=== PATIENT | male | born 1970 | race Caucasian/White ===

== ENCOUNTER 2016-12-26 16:34 | Emergency (ER) | payer OTHER ==
[~2016-12-26] VITALS: Ht 175.3 cm; Wt 108.0 kg
[~2016-12-26 16:34] MED LIST: FRN PO; LISI-461 PO; METO-551 PO; NTRGSL/4 UT
[2016-12-26 16:53] VITALS: BP 151/96; PULSE 67; TEMP 36.9; O2SAT 93; Ht 175.3 cm; Wt 108.0 kg
[2016-12-27] MEDS ORDERED: HYDR-5688 PO (00:15)
[2016-12-27] MEDS ORDERED: TAMS0.4C38 PO (00:15)
[2016-12-27] MEDS ORDERED: ONDA4TAB10 SL (00:15)
[2016-12-28] MEDS ORDERED: ASPI81TA21 PO (06:44)
[2016-12-28] MEDS ORDERED: CLOP1TAB54 PO (06:45)
[2016-12-28] MEDS ORDERED: ATOR80TA PO (06:45)
== END 2016-12-26 17:55 | disposition left against medical advice (07) ==
LOC: C.EDB 16:35
DX: N20.0 Calculus of kidney (principal)

== ENCOUNTER 2016-12-26 21:11 | Emergency (ER) | payer OTHER ==
[~2016-12-26] VITALS: Ht 175.3 cm; Wt 124.4 kg
[2016-12-26 21:34] VITALS: TEMP 36.9; Ht 175.3 cm; Wt 124.4 kg
[2016-12-26] MEDS ORDERED: ONDANSETRON INJ 2 MG/ML 2 ML VIAL IV STA (21:51)
[2016-12-26] MEDS ORDERED: MoRPHine SULFATE 4 MG/ML 1 ML CARP\\VIAL IV STA (21:51)
--- NOTE | 2016-12-26 21:55 | EMERGENCY ROOM VISIT NOTE ---
History Report prepared by Pegibjesus alberto: Dinesh Echevarria Under the Supervision of: Dr. Simba Long D.O. First contact with patient: 21:44 Chief Complaint: KIDNEY STONE Stated Complaint: KIDNEY STONE History of Present Illness The patient is a 46 year old male who presents to the Emergency Room with complaints of intermittent right flank pain beginning 12 hours ago. He has a history of kidney stones, but states that his pain is located in a different place. His most recent kidney stone was about a year ago which he was able to pass on his own. The patient also complains of nausea and right testicular pain. He denies any vomiting, or fevers. He rates his current pain as a 10/10 in severity. Source of History: patient Onset: 12 hours ago Position: other (right flank) Symptom Intensity: 10/10 Timing: intermittent Associated Symptoms: + nausea, No fevers, No vomiting Note: The patient complains of right testicular pain. Review of Systems See HPI for pertinent positives and negatives. A total of ten systems were reviewed and were otherwise negative. Past Medical & Surgical Medical Problems: (1) AC MYOCARD INFARCT,OTH LATERAL WALL,INIT EPIS CARE (2) CORONARY ATHEROSCLEROSIS OF [place] AND [place] CORONARY VESSEL (3) HYPERTENSION NOS Family History Patient reports no known family medical history. Social History Smoking Status: Never Smoker Alcohol Use: occasionally Marital Status: Occupation Status: employed Current/Historical Medications Scheduled Allopurinol (Zyloprim), 100 MG PO DAILY Aspirin Enteric Coated (Ecotrin Or Generic), 81 MG PO DAILY Atorvastatin Calcium (Lipitor), 80 MG PO DAILY Clopidogrel Bisulfate (Plavix), 75 MG PO DAILY Losartan Potassium (Cozaar), 50 MG PO HS Metoprolol Succ (Toprol Xl) (Toprol-Xl ), 100 MG PO DAILY Allergies Coded Allergies: Animal Dander (Verified Allergy, Intermediate, runny nose, watery eyes, 11/22/12) Lisinopril (Verified Adverse Reaction, Intermediate, COUGH, 12/26/16) Uncoded Allergies: MUSHROOMS (Allergy, Severe, ANAPHYLAXIS, 12/26/16) Physical Exam Vital Signs Date Time Temp Pulse Resp B/P Pulse Ox O2 Delivery O2 Flow Rate FiO2 12/26/16 23:19 69 12/26/16 22:46 59 14 153/92 96 Room Air 12/26/16 21:34 36.9 74 18 159/97 94 Room Air Medical Decision & Procedures ER Provider Diagnostic Interpretation: CT: Radiology results as stated below per my review and radiologist interpretation CT OF THE ABDOMEN AND PELVIS WITHOUT CONTRAST, STONE PROTOCOL FINDINGS: A 5 mm distal right ureteral calculus results in mild right hydroureteronephrosis with moderate perinephric and periureteral infiltration. No additional urinary calculi are identified. Evaluation of the remainder of the abdomen and pelvis is suboptimal on this unenhanced exam. Unenhanced images of the liver, spleen, adrenal glands and pancreas are normal. There is no evidence for a bowel obstruction. The appendix is normal. There is no lymphadenopathy. There are no suspicious skeletal lesions. IMPRESSION: 5 mm distal right ureteral calculus with resultant mild right hydroureteronephrosis and moderate perinephric/periureteral infiltration. Electronically signed by: Landon Villegas M.D. Laboratory Results 12/26/16 22:05 Red Blood Count 4.52, Mean Corpuscular Volume 86.1, Mean Corpuscular Hemoglobin 30.5, Mean Corpuscular Hemoglobin Concent 35.5, Mean Platelet Volume 10.6, Neutrophils (%) (Auto) 74.6, Lymphocytes (%) (Auto) 16.6, Monocytes (%) (Auto) 6.3, Eosinophils (%) (Auto) 2.0, Basophils (%) (Auto) 0.3, Neutrophils # (Auto) 8.67, Lymphocytes # (Auto) 1.93, Monocytes # (Auto) 0.73, Eosinophils # (Auto) 0.23, Basophils # (Auto) 0.03 12/26/16 22:05 Test 12/26/16 22:05 12/26/16 22:35 White Blood Count 11.61 K/uL (4.8-10.8) Red Blood Count 4.52 M/uL (4.7-6.1) Hemoglobin 13.8 g/dL (14.0-18.0) Hematocrit 38.9 % (42-52) Mean Corpuscular Volume 86.1 fL (80-100) Mean Corpuscular Hemoglobin 30.5 pg (25-34) Mean Corpuscular Hemoglobin Concent 35.5 g/dl (32-36) Platelet Count 211 K/uL (130-400) Mean Platelet Volume 10.6 fL (7.4-10.4) Neutrophils (%) (Auto) 74.6 % Lymphocytes (%) (Auto) 16.6 % Monocytes (%) (Auto) 6.3 % Eosinophils (%) (Auto) 2.0 % Basophils (%) (Auto) 0.3 % Neutrophils # (Auto) 8.67 K/uL (1.4-6.5) Lymphocytes # (Auto) 1.93 K/uL (1.2-3.4) Monocytes # (Auto) 0.73 K/uL (0.11-0.59) Eosinophils # (Auto) 0.23 K/uL (0-0.5) Basophils # (Auto) 0.03 K/uL (0-0.2) RDW Standard Deviation 42.0 fL (36.4-46.3) RDW Coefficient of Variation 13.3 % (11.5-14.5) Immature Granulocyte % (Auto) 0.2 % Immature Granulocyte # (Auto) 0.02 K/uL (0.00-0.02) Anion Gap 9.0 mmol/L (3-11) Est Creatinine Clear Calc Drug Dose 84.2 ml/min Estimated GFR () 68.4 Estimated GFR (Non- 59.0 BUN/Creatinine Ratio 14.1 (10-20) Calcium Level 9.2 mg/dl (8.5-10.1) Urine Color YELLOW Urine Appearance CLEAR (CLEAR) Urine pH 5.0 (4.5-7.5) Urine Specific [place] 1.019 (1.000-1.030) Urine Protein NEG (NEG) Urine Glucose (UA) NEG (NEG) Urine Ketones NEG (NEG) Urine Occult Blood 1+ (NEG) Urine Nitrite NEG (NEG) Urine Bilirubin NEG (NEG) Urine Urobilinogen NEG (NEG) Urine Leukocyte Esterase NEG (NEG) Urine WBC (Auto) 0 /hpf (0-5) Urine RBC (Auto) 5-10 /hpf (0-4) Urine Hyaline Casts (Auto) 1-5 /lpf (0-5) Urine Epithelial Cells (Auto) 5-10 /lpf (0-5) Urine Bacteria (Auto) NEG (NEG) Laboratory results reviewed by me Medications Administered Medications (Trade) Dose Ordered Sig/Kvng Route Start Time Stop Time Status Last Admin Dose Admin Morphine Sulfate (MoRPHine SULFATE INJ) 4 mg NOW STAT IV 12/26/16 21:51 12/26/16 21:53 DC 12/26/16 22:23 4 MG Ondansetron HCl (Zofran Inj) 4 mg NOW STAT IV 12/26/16 21:51 12/26/16 21:53 DC 12/26/16 22:23 4 MG Hydromorphone HCl (Dilaudid Inj) 1 mg NOW STAT IV 12/26/16 23:01 12/26/16 23:02 DC 12/26/16 23:12 1 MG Tamsulosin HCl (Flomax Cap) 0.4 mg NOW ONCE PO 12/26/16 23:15 12/26/16 23:16 DC 12/26/16 23:12 0.4 MG ED Course 2145: The patient was evaluated in room B9. A complete history and physical exam was performed. 2150: Ordered Zofran Inj 4 mg IV, Morphine Sulfate 4 mg IV. 2300: Ordered Dilaudid Inj 1 mg IV. 5: Ordered Flomax Cap 0.4 mg PO. 0006: I reevaluated the patient. He looks more comfortable. Discussed results and discharge instructions: he verbalized understanding and agreement. He was referred to Urology. The patient is ready for discharge. Medical Decision Triage Nursing notes reviewed. The patient's presentation and history were concerning for ureteral lithiasis, renal colic, UTI, pyelonephritis, and musculoskeletal back pain. Reexamination patient 12:10 AM regressing in no distress. Patient has a 5 mm kidney stone in the right UVJ. Patient will be treated with pain medicine. Patient will be referred to urology. The case is discussed with the patient's at bedside all questions were answered. Impression Primary Impression: Ureterolithiasis Scribe Attestation The scribe's documentation has been prepared under my direction and personally reviewed by me in its entirety. I confirm that the note above accurately reflects all work, treatment, procedures, and medical decision making performed by me. Departure Information Dispostion Home / Self-Care Prescriptions Ondasetron Odt (ZOFRAN ODT) 4 Mg Tab 4 MG SL Q6H for Nausea, #10 TAB Prov: Simba Long, DO 12/27/16 Tamsulosin Hcl (FLOMAX) 0.4 Mg Cap 0.4 MG PO DAILY, #10 CAP Prov: Simba Long, DO 12/27/16 Hydrocodone/Acetaminophen 5MG/325MG ([place] 5MG/325MG) Tab 1 TABLET PO Q6 Y for Pain for 10 Days, #20 TAB Prov: Simba Long, DO 12/27/16 Referrals No Doctor, Assigned (PCP) eWrner Jessica MD, Urology Patient Instructions Kidney Stones, My [facility] Additional Instructions Follow-up with urology this week. Continue to increase fluids. Take pain medicine and other medications as directed and return for increased pain or any concerns
[2016-12-26 22:20] LABS: BASO % 0.3 %; BASO ABS # 0.03 K/uL (0-0.2); COMPLETE YES; HEMATOCRIT 38.9 % (42-52); IG% 0.2 %; LYMPH % 16.6 %; LYMPH ABS # 1.93 K/uL (1.2-3.4); MEAN CELL VOLUME 86.1 fL (80-100); MEAN CORPUSCULAR HEMOGLOBIN 30.5 pg (25-34); MEAN CORPUSCULAR HGB CONC 35.5 g/dl (32-36); MEAN PLATELET VOLUME 10.6 fL (7.4-10.4); MONO % 6.3 %; NEUT % 74.6 %; PLATELET COUNT 211 K/uL (130-400); RED BLOOD COUNT 4.52 M/uL (4.7-6.1); WHITE BLOOD COUNT 11.61 K/uL (4.8-10.8)
[2016-12-26 22:38] LABS: BUN/CREATININE RATIO 14.1 (10-20); CALCIUM 9.2 mg/dl (8.5-10.1); CREATININE 1.4 mg/dl (0.60-1.40); POTASSIUM 3.7 mmol/L (3.5-5.1)
[2016-12-26 22:49] LABS: URINE APPEARANCE CLEAR (CLEAR); URINE BILIRUBIN NEG (NEG); URINE COLOR YELLOW; URINE NITRITE NEG (NEG); URINE SPECIFIC GRAVITY 1.019 (1.000-1.030); UROBILINOGEN NEG (NEG)
--- NOTE | 2016-12-26 22:50 | DIAGNOSTIC IMAGING REPORT ---
CT OF THE ABDOMEN AND PELVIS WITHOUT CONTRAST, STONE PROTOCOL CLINICAL HISTORY: Flank pain. COMPARISON STUDY: CT of the abdomen and pelvis December 02, 2012. TECHNIQUE: Helical axial images of the abdomen and pelvis were obtained without IV or oral contrast according to renal stone protocol. FINDINGS: A 5 mm distal right ureteral calculus results in mild right hydroureteronephrosis with moderate perinephric and periureteral infiltration. No additional urinary calculi are identified. Evaluation of the remainder of the abdomen and pelvis is suboptimal on this unenhanced exam. Unenhanced images of the liver, spleen, adrenal glands and pancreas are normal. There is no evidence for a bowel obstruction. The appendix is normal. There is no lymphadenopathy. There are no suspicious skeletal lesions. IMPRESSION: 5 mm distal right ureteral calculus with resultant mild right hydroureteronephrosis and moderate perinephric/periureteral infiltration. Electronically signed by: Landon Villegas M.D. 12/26/2016 10:48 PM Dictated Date/Time: 12/26/2016 10:45 PM
[2016-12-26 22:51] LABS: MANUAL MICROSCOPIC REQUIRED? NO; REVIEW REQ? NO
[2016-12-26] MEDS ORDERED: HYDROmorphone INJ 1 MG/ML SYR IV STA (23:01)
[2016-12-26] MEDS ORDERED: TAMSULOSIN HCL 0.4 MG CAP PO ONE (23:15)
[2016-12-27] MEDS ORDERED: TAMS0.4C38 PO (00:15)
[2016-12-27] MEDS ORDERED: ONDA4TAB10 SL (00:15)
[2016-12-27] MEDS ORDERED: HYDR-5688 PO (00:15)
[2016-12-27] MEDS ORDERED: NORCO 5/325MG HOME PACK PO ONE (00:30)
[2016-12-27 00:55] VITALS: BP 142/80; PULSE 78; O2SAT 94
[2016-12-28] MEDS ORDERED: ASPI81TA21 PO (06:44)
[2016-12-28] MEDS ORDERED: CLOP1TAB54 PO (06:45)
[2016-12-28] MEDS ORDERED: ATOR80TA PO (06:45)
[2016-12-28] MEDS ORDERED: ALLO100T PO (22:21)
[2016-12-28] MEDS ORDERED: METO1TAB69 PO (22:21)
[2016-12-28] MEDS ORDERED: LOSA50TA6 PO (22:22)
== END 2016-12-27 00:55 | disposition home or self-care (01) ==
LOC: C.EDB 21:12
DX: N20.2 Calculus of kidney with calculus of ureter (principal); I10 Essential (primary) hypertension; I25.10 Atherosclerotic heart disease of native coronary artery without angina pectoris; I25.2 Old myocardial infarction; Z79.82 Long term (current) use of aspirin; Z79.899 Other long term (current) drug therapy; Z88.8 Allergy status to other drugs, medicaments and biological substances; Z91.09 Other allergy status, other than to drugs and biological substances

== ENCOUNTER 2016-12-28 17:19 | Inpatient (IN) | payer SELFPAY ==
[~2016-12-28] VITALS: Ht 175.3 cm; Wt 124.2 kg
[~2016-12-28 17:19] MED LIST changes: +ASPI81TA21 PO; +ATOR80TA PO; +CLOP1TAB54 PO; -FRN PO; +HYDR-5688 PO; -LISI-461 PO; -METO-551 PO; -NTRGSL/4 UT; +ONDA4TAB10 SL; +TAMS0.4C38 PO
[2016-12-28] MEDS ORDERED: MoRPHine SULFATE 4 MG/ML 1 ML CARP\\VIAL IV STA (17:42)
[2016-12-28] MEDS ORDERED: ONDANSETRON INJ 2 MG/ML 2 ML VIAL IV STA (17:42)
[2016-12-28] MEDS ORDERED: SODIUM CHLORIDE 0.9% 1000ML 1,000 ML IV STA (17:42)
[2016-12-28 18:20] LABS: BASO % 0.2 %; BASO ABS # 0.02 K/uL (0-0.2); COMPLETE YES; EOS % 1.5 %; HEMATOCRIT 37.7 % (42-52); IG% 0.2 %; LYMPH % 13.8 %; LYMPH ABS # 1.73 K/uL (1.2-3.4); MEAN CELL VOLUME 87.5 fL (80-100); MEAN CORPUSCULAR HEMOGLOBIN 29.9 pg (25-34); MEAN CORPUSCULAR HGB CONC 34.2 g/dl (32-36); MEAN PLATELET VOLUME 10.4 fL (7.4-10.4); MONO % 9.7 %; NEUT % 74.6 %; PLATELET COUNT 187 K/uL (130-400); RED BLOOD COUNT 4.31 M/uL (4.7-6.1)
[2016-12-28] MEDS ORDERED: SODIUM CHLORIDE 0.9% 500ML 500 ML IV STA (18:46)
[2016-12-28] MEDS ORDERED: HYDROmorphone INJ 1 MG/ML SYR IV STA (18:46)
[2016-12-28 19:07] LABS: ALB/GLOB RATIO 0.9 (0.9-2); POTASSIUM 4.3 mmol/L (3.5-5.1)
[2016-12-28 19:10] LABS: URINE APPEARANCE CLEAR (CLEAR); URINE BILIRUBIN NEG (NEG); URINE COLOR YELLOW; URINE NITRITE NEG (NEG); UROBILINOGEN NEG (NEG); ZZUR CULT IF INDIC CLEAN CATCH NO
[2016-12-28 19:11] LABS: MANUAL MICROSCOPIC REQUIRED? NO; REVIEW REQ? NO
--- NOTE | 2016-12-28 19:46 | DIAGNOSTIC IMAGING REPORT ---
RENAL ULTRASOUND CLINICAL HISTORY: Right flank pain. COMPARISON STUDY: CT of the abdomen and pelvis December 26, 2016. TECHNIQUE: Sonography of the kidneys and the urinary bladder was performed. FINDINGS: The right kidney measures 10.8 x 6.4 x 6.4 cm and the left measures 11.6 x 6.6 x 6.6 cm. There is mild right hydronephrosis. There is no left hydronephrosis. The left ureteral jet was visualized. The right ureteral jet was not visualized. No ureteral calculi identified although these may be occult by sonography. IMPRESSION: Mild right hydronephrosis, similar to prior CT when allowing for differences in technique. No right ureteral jet identified. No ureteral calculi identified although these are often occult by sonography. Electronically signed by: Landon Villegas M.D. 12/28/2016 7:45 PM Dictated Date/Time: 12/28/2016 7:43 PM
--- NOTE | 2016-12-28 19:56 | DIAGNOSTIC IMAGING REPORT ---
KUB CLINICAL HISTORY: Right flank pain. COMPARISON STUDY: CT of the abdomen and pelvis December 26, 2016. FINDINGS: A 4 mm right pelvic calcification likely reflects the distal right ureteral calculus shown on prior CT. Additional pelvic calcifications likely reflect phlebolith and vascular calcifications. IMPRESSION: 4 mm right pelvic calcification which likely reflects the distal right ureteral calculus shown on prior CT. A phlebolith could appear similar although is considered less likely. Electronically signed by: Landon Villegas M.D. 12/28/2016 7:55 PM Dictated Date/Time: 12/28/2016 7:52 PM
--- NOTE | 2016-12-28 20:15 | EMERGENCY ROOM VISIT NOTE ---
History First contact with patient: 17:35 Chief Complaint: KIDNEY STONE Stated Complaint: KIDNEY STONES, RIGHT SIDE History of Present Illness The patient is a 46 year old male who presents to the Emergency Department by private vehicle for evaluation of his ongoing pain related to an RIGHT-sided kidney stone. The patient was seen in this facility on Monday and diagnosed with a RIGHT-sided kidney stone. He had been feeling well yesterday, but reports worsening symptoms today. He has had chills as well as nausea and vomiting. He describes intense pain to the RIGHT-sided flank area which waxes and wanes in nature. He's had no burning with urination or blood in his urine. He is uses pain medications with minimal relief of symptoms. The patient rates his current discomfort as a 10/10. He denies any headaches, dizziness, lightheadedness, chest pain, palpitations, short of breath, pleuritic pain, hematemesis, hematochezia, melena, hematuria, or dysuria. Review of Systems A complete 10-point Review of Systems was discussed with the patient, with pertinent positives and negatives listed in the History of Present Illness. All remaining Review of Systems questions can be considered negative unless otherwise specified. Past Medical/Surgical History Medical Problems: (1) CAD (coronary artery disease) (2) Dyslipidemia (3) Gout (4) History of kidney stones (5) HTN (hypertension) Surgical Problems: (1) Stented coronary artery Family History Patient reports no known family medical history. Social History Smoking Status: Never Smoker Smokeless Tobacco Use: No Alcohol Use: occasionally Drug Use: none Marital Status: Housing Status: lives with family Occupation Status: employed Current/Historical Medications Scheduled Allopurinol (Zyloprim), 100 MG PO DAILY Aspirin Enteric Coated (Ecotrin Or Generic), 81 MG PO DAILY Atorvastatin Calcium (Lipitor), 80 MG PO DAILY Clopidogrel Bisulfate (Plavix), 75 MG PO DAILY Losartan Potassium (Cozaar), 50 MG PO HS Metoprolol Succ (Toprol Xl) (Toprol-Xl ), 100 MG PO DAILY Ondasetron Odt (Zofran Odt), 4 MG SL Q6H Tamsulosin Hcl (Flomax), 0.4 MG PO DAILY Scheduled PRN Hydrocodone/Acetaminophen 5MG/325MG ([place] 5MG/325MG), 1 TABLET PO Q6 PRN for Pain Allergies Coded Allergies: Animal Dander (Verified Allergy, Intermediate, runny nose, watery eyes, 11/22/12) Lisinopril (Verified Adverse Reaction, Intermediate, COUGH, 12/26/16) Uncoded Allergies: MUSHROOMS (Allergy, Severe, ANAPHYLAXIS, 12/26/16) Physical Exam Vital Signs Date Time Temp Pulse Resp B/P Pulse Ox O2 Delivery O2 Flow Rate FiO2 12/28/16 20:14 37.5 75 16 141/80 95 Room Air 12/28/16 18:49 69 18 163/96 99 Room Air 12/28/16 17:22 37.0 74 18 138/91 95 Room Air Pain Rating (0-10): 10 Physical Exam VITAL SIGNS - Vital signs and nursing notes were reviewed. GENERAL - 46-year-old male appearing his stated age who is in no acute distress. Communicates well with provider and answers questions appropriately. LUNGS - Chest wall symmetric without accessory muscle use, intercostals retractions, or central cyanosis. Normal vesicular breath sounds CTA B/L. No wheezes, rales, or rhonchi appreciated. CARDIAC - RRR with S1/S2. No murmur, rubs, or gallops appreciated. ABDOMEN - Abdominal contour obese and without pulsations or visible masses. BS normoactive all four quadrants. No tenderness to palpation appreciated throughout. No guarding. No Rebound Tenderness. Negative Rovsing's. Negative Ortiz's. No palpable masses, hepatosplenomegaly, or ascites noted. RIGHT sided CVA Tenderness to percussion. PSYCH - A&Ox3 and cooperates fully with examiner. Pt is very pleasant and interacts well with examiner. Medical Decision & Procedures ER Provider Diagnostic Interpretation: Radiological imaging and reports were reviewed by myself. Radiologist's Interpretation as follows: KUB CLINICAL HISTORY: Right flank pain. COMPARISON STUDY: CT of the abdomen and pelvis December 26, 2016. FINDINGS: A 4 mm right pelvic calcification likely reflects the distal right ureteral calculus shown on prior CT. Additional pelvic calcifications likely reflect phlebolith and vascular calcifications. IMPRESSION: 4 mm right pelvic calcification which likely reflects the distal right ureteral calculus shown on prior CT. A phlebolith could appear similar although is considered less likely. RENAL ULTRASOUND CLINICAL HISTORY: Right flank pain. COMPARISON STUDY: CT of the abdomen and pelvis December 26, 2016. TECHNIQUE: Sonography of the kidneys and the urinary bladder was performed. FINDINGS: The right kidney measures 10.8 x 6.4 x 6.4 cm and the left measures 11.6 x 6.6 x 6.6 cm. There is mild right hydronephrosis. There is no left hydronephrosis. The left ureteral jet was visualized. The right ureteral jet was not visualized. No ureteral calculi identified although these may be occult by sonography. IMPRESSION: Mild right hydronephrosis, similar to prior CT when allowing for differences in technique. No right ureteral jet identified. No ureteral calculi identified although these are often occult by sonography. Laboratory Results 12/28/16 18:00 Red Blood Count 4.31, Mean Corpuscular Volume 87.5, Mean Corpuscular Hemoglobin 29.9, Mean Corpuscular Hemoglobin Concent 34.2, Mean Platelet Volume 10.4, Neutrophils (%) (Auto) 74.6, Lymphocytes (%) (Auto) 13.8, Monocytes (%) (Auto) 9.7, Eosinophils (%) (Auto) 1.5, Basophils (%) (Auto) 0.2, Neutrophils # (Auto) 9.33, Lymphocytes # (Auto) 1.73, Monocytes # (Auto) 1.21, Eosinophils # (Auto) 0.19, Basophils # (Auto) 0.02 12/28/16 18:00 Test 12/28/16 18:00 12/28/16 18:50 White Blood Count 12.50 K/uL (4.8-10.8) Red Blood Count 4.31 M/uL (4.7-6.1) Hemoglobin 12.9 g/dL (14.0-18.0) Hematocrit 37.7 % (42-52) Mean Corpuscular Volume 87.5 fL (80-100) Mean Corpuscular Hemoglobin 29.9 pg (25-34) Mean Corpuscular Hemoglobin Concent 34.2 g/dl (32-36) Platelet Count 187 K/uL (130-400) Mean Platelet Volume 10.4 fL (7.4-10.4) Neutrophils (%) (Auto) 74.6 % Lymphocytes (%) (Auto) 13.8 % Monocytes (%) (Auto) 9.7 % Eosinophils (%) (Auto) 1.5 % Basophils (%) (Auto) 0.2 % Neutrophils # (Auto) 9.33 K/uL (1.4-6.5) Lymphocytes # (Auto) 1.73 K/uL (1.2-3.4) Monocytes # (Auto) 1.21 K/uL (0.11-0.59) Eosinophils # (Auto) 0.19 K/uL (0-0.5) Basophils # (Auto) 0.02 K/uL (0-0.2) RDW Standard Deviation 43.3 fL (36.4-46.3) RDW Coefficient of Variation 13.4 % (11.5-14.5) Immature Granulocyte % (Auto) 0.2 % Immature Granulocyte # (Auto) 0.02 K/uL (0.00-0.02) Anion Gap 6.0 mmol/L (3-11) Est Creatinine Clear Calc Drug Dose 58.9 ml/min Estimated GFR () 44.4 Estimated GFR (Non- 38.3 BUN/Creatinine Ratio 11.0 (10-20) Calcium Level 9.0 mg/dl (8.5-10.1) Total Bilirubin 0.5 mg/dl (0.2-1) Aspartate Amino Transf (AST/SGOT) 13 U/L (15-37) Alanine Aminotransferase (ALT/SGPT) 30 U/L (12-78) Alkaline Phosphatase 72 U/L (45-117) Total Protein 7.2 gm/dl (6.4-8.2) Albumin 3.5 gm/dl (3.4-5.0) Globulin 3.7 gm/dl (2.5-4.0) Albumin/Globulin Ratio 0.9 (0.9-2) Urine Color YELLOW Urine Appearance CLEAR (CLEAR) Urine pH 5.0 (4.5-7.5) Urine Specific [place] 1.010 (1.000-1.030) Urine Protein NEG (NEG) Urine Glucose (UA) NEG (NEG) Urine Ketones NEG (NEG) Urine Occult Blood NEG (NEG) Urine Nitrite NEG (NEG) Urine Bilirubin NEG (NEG) Urine Urobilinogen NEG (NEG) Urine Leukocyte Esterase NEG (NEG) Medications Administered Medications (Trade) Dose Ordered Sig/Kvng Route Start Time Stop Time Status Last Admin Dose Admin Sodium Chloride (Nss 1000ml) 1,000 ml @ 999 mls/hr Q1H1M STAT IV 12/28/16 17:42 12/28/16 18:42 DC 12/28/16 17:59 999 MLS/HR Ondansetron HCl (Zofran Inj) 4 mg NOW STAT IV 12/28/16 17:42 12/28/16 17:44 DC 12/28/16 17:59 4 MG Morphine Sulfate (MoRPHine SULFATE INJ) 4 mg NOW STAT IV 12/28/16 17:42 12/28/16 17:44 DC 12/28/16 18:00 4 MG Hydromorphone HCl 1 mg 1 mg NOW STAT IV 12/28/16 18:46 12/28/16 18:47 DC 12/28/16 18:52 1 MG Sodium Chloride (Nss 500ml) 500 ml @ 999 mls/hr Q31M STAT IV 12/28/16 18:46 12/28/16 19:16 DC 12/28/16 18:53 999 MLS/HR ED Course Patient was seen and evaluated by myself. Previous emergency department visit notes were reviewed. Labs were drawn, saline lock in place. The patient was hydrated with 1000 mL normal saline bolus. He received 4 mg morphine and 4 mg Zofran intravenously. KUB and retroperitoneal ultrasounds were obtained. Laboratory results demonstrate a mild leukocytosis. He has no significant anemia. His creatinine was elevated at 2.0. Urinalysis does not suggest infection. Patient was having worsening pain and was treated with 1 mg Dilaudid. Laboratory results and imaging studies were reviewed with the patient who acknowledges understanding. Patient was offered outpatient management with continued pain control versus inpatient. The patient's pain was intense and he does not feel he can go home again on oral medication alone. I agree. The patient will be admitted to the [facility] program for further evaluation and management. Patient admitted in stable condition. Medical Decision Given the patient's presentation and stated complaints, I did elect to perform the above-mentioned workup. The patient presents today with intensity of pain that has worsened to the RIGHT-sided flank area. He has no fever. He does have a mild leukocytosis. Of interest, his creatinine is bumped from 1.42 days ago to 2.0 today. He does have hydronephrosis and persistent stone. Urinalysis does not suggest infection. The patient's pain was adequately controlled the emergency department. At this point, the patient has failed outpatient with pain control and is had worsening symptoms. He warrants further evaluation and pain control and inpatient setting. Patient was admitted in stable condition. In the evaluation and treatment of this patient, the following differential diagnoses were considered: Appendicitis, Diverticulitis, Diverticulosis, Colitis , Ischemic Colitis, Inflammatory Bowel Disease, Irritable Bowel Disease, Testicular Torsion, Kidney Stone, Pyelonephritis, Hydronephrosis, Cholecystitis , Ascending Cholangitis, Choledocholithiasis, GERD. Impression Primary Impression: Ureterolithiasis Additional Impressions: Hydronephrosis determined by ultrasound ALAINA (acute kidney injury) Departure Information Dispostion Admitted as an inpatient Condition GOOD Referrals Simba Marcial D.O. (PCP) Patient Instructions My [facility] Problem Qualifiers
[2016-12-28] MEDS ORDERED: ONDANSETRON INJ 2 MG/ML 2 ML VIAL IV PRN (21:00)
[2016-12-28] MEDS ORDERED: POLYETHYLENE (MIRALAX) 17 GM PACK PO PRN (21:00)
--- NOTE | 2016-12-28 21:22 | History and Physical ---
History & Physical Date & Time of Service: Dec 28, 2016 at 20:59 Chief Complaint: Kidney Stones, Right Side Primary Care Physician: Simba Marcial D.O. History of Present Illness Source: patient This is a 46 y/o male with PMHx of CAD s/p stents, HTN, Dyslipidemia and other problems as outlined below who presents to the ED c/o R flank pain that began 2 days ago. Pt reports that 2 days ago he developed 10/10 waxing and waning R flank pain that radiated to into the R groin. Sxs were assoc with hematuria. Pt was seen in the ED 2 days and diagnosed with a R sided kidney stone. He was discharged home with Flomax and hydrocodone PRN. Yesterday, his hematuria and flank pain improved and he thought he had passed the stone however today his R flank pain returned. He tried taking the hydrocodone however it offered him no relief and decided to return to the ED. Pt has a history of kidney stones. He has never required surgery. Pt denies fever/chills, chest pain, SOB, abd pain, N /V, bowel issues, dysuria, LE edema, calf pain, lightheadedness/dizziness. In the ED, vitals are stable. Pt is afebrile with leukocytosis >12k. Creat 2.0. UA negative. KUB + 4mm R ureteral calculi with mild R hydronephrosis. Pt will be admitted for further evaluation and treatment. Past Medical/Surgical History Medical Problems: (1) CAD (coronary artery disease) Permanent Comment: s/p stents x 3 Status: Chronic (2) Dyslipidemia Status: Chronic (3) Gout Status: Chronic (4) History of kidney stones Status: Chronic (5) HTN (hypertension) Status: Chronic Surgical Problems: (1) Stented coronary artery Permanent Comment: 2011 (stents x 2) and 2014 (stent x 1) Status: Resolved Family History Patient reports no known family medical history. Social History Smoking Status: Never Smoker Smokeless Tobacco Use: No Alcohol Use: none Drug Use: none Marital Status: Housing status: lives with family Occupational Status: employed Immunizations History of Influenza Vaccine: No History of Tetanus Vaccine?: Unknown History of Pneumococcal: No History of Hepatitis B Vaccine: No Allergies Coded Allergies: Animal Dander (Verified Allergy, Intermediate, runny nose, watery eyes, 11/22/12) Lisinopril (Verified Adverse Reaction, Intermediate, COUGH, 12/26/16) Uncoded Allergies: MUSHROOMS (Allergy, Severe, ANAPHYLAXIS, 12/26/16) Home Medications Scheduled Allopurinol (Zyloprim), 100 MG PO DAILY Aspirin Enteric Coated (Ecotrin Or Generic), 81 MG PO DAILY Atorvastatin Calcium (Lipitor), 80 MG PO DAILY Clopidogrel Bisulfate (Plavix), 75 MG PO DAILY Losartan Potassium (Cozaar), 50 MG PO HS Metoprolol Succ (Toprol Xl) (Toprol-Xl ), 100 MG PO DAILY Ondasetron Odt (Zofran Odt), 4 MG SL Q6H Tamsulosin Hcl (Flomax), 0.4 MG PO DAILY Scheduled PRN Hydrocodone/Acetaminophen 5MG/325MG ([place] 5MG/325MG), 1 TABLET PO Q6 PRN for Pain Review of Systems Constitutional: No chills, No fatigue, No fever, No sweats, No weakness Eyes: No worsening of vision ENT: No hearing loss Respiratory: No cough, No shortness of breath Cardiovascular: No chest pain, No claudication, No edema Abdomen: + problem reported (flank pain ), No constipation, No diarrhea, No nausea, No pain, No vomiting Musculoskeletal: No calf pain, No swelling Genitourinary - Male: + hematuria (resolved), No dysuria Neurologic: No weakness Psychiatric: No depression symptoms Endocrine: No fatigue Hematologic / Lymphatic: No abnormal bleeding/bruising Integumentary: No new/changing skin lesions Physical Exam Vital Signs Date Time Temp Pulse Resp B/P Pulse Ox O2 Delivery O2 Flow Rate FiO2 12/28/16 20:14 37.5 75 16 141/80 95 Room Air 12/28/16 18:49 69 18 163/96 99 Room Air 12/28/16 17:22 37.0 74 18 138/91 95 Room Air General Appearance: WD/WN, no apparent distress, + pertinent finding (Pt is laying in bed with at bedside ) Head: normocephalic, atraumatic Eyes: normal inspection ENT: hearing grossly normal Neck: supple Respiratory/Chest: chest non-tender, lungs clear, normal breath sounds, no respiratory distress Cardiovascular: regular rate, rhythm, no edema, no murmur Abdomen/GI: normal bowel sounds, non tender, soft Back: normal inspection, + right CVA tenderness Extremities/Musculoskelatal: normal inspection, no calf tenderness, no pedal edema Neurologic/Psych: alert, normal mood/affect, oriented x 3 Skin: normal color, warm/dry Diagnostics Laboratory Results Results Past 24 Hours Test 12/28/16 18:00 12/28/16 18:50 Range/Units White Blood Count 12.50 4.8-10.8 K/uL Red Blood Count 4.31 4.7-6.1 M/uL Hemoglobin 12.9 14.0-18.0 g/dL Hematocrit 37.7 42-52 % Mean Corpuscular Volume 87.5 80-100 fL Mean Corpuscular Hemoglobin 29.9 25-34 pg Mean Corpuscular Hemoglobin Concent 34.2 32-36 g/dl Platelet Count 187 130-400 K/uL Mean Platelet Volume 10.4 7.4-10.4 fL Neutrophils (%) (Auto) 74.6 % Lymphocytes (%) (Auto) 13.8 % Monocytes (%) (Auto) 9.7 % Eosinophils (%) (Auto) 1.5 % Basophils (%) (Auto) 0.2 % Neutrophils # (Auto) 9.33 1.4-6.5 K/uL Lymphocytes # (Auto) 1.73 1.2-3.4 K/uL Monocytes # (Auto) 1.21 0.11-0.59 K/uL Eosinophils # (Auto) 0.19 0-0.5 K/uL Basophils # (Auto) 0.02 0-0.2 K/uL RDW Standard Deviation 43.3 36.4-46.3 fL RDW Coefficient of Variation 13.4 11.5-14.5 % Immature Granulocyte % (Auto) 0.2 % Immature Granulocyte # (Auto) 0.02 0.00-0.02 K/uL Sodium Level 138 136-145 mmol/L Potassium Level 4.3 3.5-5.1 mmol/L Chloride Level 102 98-107 mmol/L Carbon Dioxide Level 30 21-32 mmol/L Anion Gap 6.0 3-11 mmol/L Blood Urea Nitrogen 22 7-18 mg/dl Creatinine 2.00 0.60-1.40 mg/dl Est Creatinine Clear Calc Drug Dose 58.9 ml/min Estimated GFR () 44.4 Estimated GFR (Non- 38.3 BUN/Creatinine Ratio 11.0 10-20 Random Glucose 93 70-99 mg/dl Calcium Level 9.0 8.5-10.1 mg/dl Total Bilirubin 0.5 0.2-1 mg/dl Aspartate Amino Transf (AST/SGOT) 13 15-37 U/L Alanine Aminotransferase (ALT/SGPT) 30 12-78 U/L Alkaline Phosphatase 72 45-117 U/L Total Protein 7.2 6.4-8.2 gm/dl Albumin 3.5 3.4-5.0 gm/dl Globulin 3.7 2.5-4.0 gm/dl Albumin/Globulin Ratio 0.9 0.9-2 Urine Color YELLOW Urine Appearance CLEAR CLEAR Urine pH 5.0 4.5-7.5 Urine Specific [place] 1.010 1.000-1.030 Urine Protein NEG NEG Urine Glucose (UA) NEG NEG Urine Ketones NEG NEG Urine Occult Blood NEG NEG Urine Nitrite NEG NEG Urine Bilirubin NEG NEG Urine Urobilinogen NEG NEG Urine Leukocyte Esterase NEG NEG Diagnostic Radiology KUB IMPRESSION: 4 mm right pelvic calcification which likely reflects the distal right ureteral calculus shown on prior CT. A phlebolith could appear similar although is considered less likely. R RENAL US IMPRESSION: Mild right hydronephrosis, similar to prior CT when allowing for differences in technique. No right ureteral jet identified. No ureteral calculi identified although these are often occult by sonography. Impression Assessment and Plan R RENAL CALCULI WITH MILD HYDRONEPHROSIS pt presented with R flank pain and hematuria 2 days ago; h/o multiple kidney stones -admit to med/surg -pt is afebrile with no leukocytosis -KUB + 4mm R ureteral calculi and R Renal US + mild hydronephrosis -UA negative -cont IVF, Flomax and pain control -strain urine -hold off on urology consult for now -monitor ALAINA -creatinine 2.0; was 1.4 (12/26); secondary to obstructing ureteral calculi (see above) -hold losartan -cont IVF -monitor with daily prp and avoid nephrotoxic agents when able CAD -s/p stent placement -cont ASA, Plavix, BB and statin -pt currently denies anginal sxs HTN -BP stable -cont metoprolol -losartan on hold for ALAINA -monitor DYSLIPIDEMIA -cont statin DVT PROPHYLAXIS -SCDs and ambulation CODE STATUS -FULL CODE status DISPO Pt seen in collaboration with Dr. Henderson. Please see her addendum for further details. Thanks! -Of note: patient will be followed by Dr. Valiente starting tomorrow AM. I have seen, examined and discussed this patient with Rosario Geronimo and I agree with the above note. Patient presented with right flank pain, with right renal stone. Vitals stable. PE: General- awake; alert; NAD Eyes- EOMI; no scleral icterus Neck- no stridor; trachea midline Lungs- CTA bilaterally; no wheezes/crackles Heart- RRR; no m/r/g Abdomen- soft; NTND; nBS Back- right CVA tenderness Extremities- no c/c/e; no deformity Neuro- no focal deficits Skin- no appreciable rash or bruise Labs, imaging reviewed. Right renal stone: Continue IVF's, pain medication PRN. Continue Flomax. Strain urine. If symptoms persist, consider Urology consult. ALAINA: Likely 2/2 stone. Ultrasound with mild right hydronephrosis. Continue IVF' s. Hold losartan. Agree with remainder of plan as outlined above. VTE Prophylaxis VTE Risk Assessment Done? Y/N: Yes Risk Level: Low
[2016-12-28] MEDS: HYDROmorphone INJ 1 MG/ML SYR IV PRN (21:55)
[2016-12-28 22:00] VITALS: O2SAT 95
[2016-12-28] MEDS: SODIUM CHLORIDE 0.9% 1000ML 1,000 ML IV SCH (22:12)
[2016-12-28 22:20] VITALS: BP 121/78; PULSE 78; TEMP 37.3; O2SAT 91; Ht 175.3 cm; Wt 124.2 kg
[2016-12-28] MEDS ORDERED: ALLO100T PO (22:21)
[2016-12-28] MEDS ORDERED: METO1TAB69 PO (22:21)
[2016-12-28] MEDS ORDERED: LOSA50TA6 PO (22:22)
[2016-12-28 23:15] VITALS: BP 139/75; PULSE 83; TEMP 37.4; O2SAT 92
[2016-12-29] MEDS: HYDROmorphone INJ 1 MG/ML SYR IV PRN (03:06)
[2016-12-29] MEDS: SODIUM CHLORIDE 0.9% 1000ML 1,000 ML IV SCH (04:43)
[2016-12-29 06:43] LABS: HEMATOCRIT 35.8 % (42-52); MEAN CELL VOLUME 88.6 fL (80-100); MEAN CORPUSCULAR HEMOGLOBIN 30.2 pg (25-34); MEAN CORPUSCULAR HGB CONC 34.1 g/dl (32-36); MEAN PLATELET VOLUME 10.6 fL (7.4-10.4); PLATELET COUNT 169 K/uL (130-400); RED BLOOD COUNT 4.04 M/uL (4.7-6.1); WHITE BLOOD COUNT 10.97 K/uL (4.8-10.8)
[2016-12-29 07:22] VITALS: BP 131/78; PULSE 79; TEMP 37; O2SAT 92
[2016-12-29 07:46] LABS: BUN/CREATININE RATIO 10.5 (10-20); CALCIUM 8.3 mg/dl (8.5-10.1); POTASSIUM 4.3 mmol/L (3.5-5.1)
[2016-12-29] MEDS ORDERED: TAMSULOSIN HCL 0.4 MG CAP PO SCH (09:00)
[2016-12-29] MEDS ORDERED: CLOPIDOGREL BISULFATE 75 MG TAB PO SCH (09:00)
[2016-12-29] MEDS ORDERED: ASPIRIN 81 MG ECTAB PO SCH (09:00)
[2016-12-29] MEDS ORDERED: ALLOPURINOL 100 MG TAB PO SCH (09:00)
[2016-12-29] MEDS ORDERED: METOPROLOL SUCC 50MG EXT REL TAB PO SCH (09:00)
[2016-12-29] MEDS ORDERED: ATORVASTATIN 40 MG TAB PO SCH (09:00)
[2016-12-29] MEDS ORDERED: SENNA 8.6 MG TAB PO SCH (09:00)
--- NOTE | 2016-12-29 14:13 | Discharge Instructions ---
Discharge Instructions Date of Service Dec 29, 2016. Admission Reason for Admission: Ureterlithiasis Discharge Discharge Diagnosis / Problem: renal stone Discharge Goals Goal(s): Decrease discomfort, Improve function Activity Recommendations Activity Limitations: resume your previous activity . Instructions / Follow-Up Instructions / Follow-Up FOLLOWUP WITH FAMILY DOCTOR ON December AT 11:30AM. LAB: BMP IN 4-5 DAYS AND FOLLOW RESULTS WITH FAMILY DOCTOR. Current Hospital Diet Patient's current hospital diet: AHA Diet (Heart Healthy) Discharge Diet Recommended Diet: AHA Diet (Heart Healthy) Pending Studies Studies pending at discharge: no Medical Emergencies . Who to Call and When: Medical Emergencies: If at any time you feel your situation is an emergency, please call 911 immediately. . Non-Emergent Contact Non-Emergency issues call your: Primary Care Provider . . "Provider Documentation" section prepared by Jamin Valiente. VTE Core Measure Inpt VTE Proph given/why not?: SCD's
[2016-12-29 14:29] VITALS: BP 131/78; PULSE 79; TEMP 37; O2SAT 92
--- NOTE | 2016-12-29 16:58 | Progress Note ---
Internal Med Progress Note Date of Service: Dec 29, 2016. Provider Documentation: SUBJECTIVE: patient says he passed stone and pain resolved and wants to go home had passed kidney stones in the past but this one took long time and was most painful afebrile no other complaints OBJECTIVE: Vital Signs-as noted below Exam: General-alert and oriented. Not in distress ENT-normal hearing Neck-no neck masses Lungs-cta b/l no wheezing no crackles Heart-s1 and s2 heard, regular rate and rhythm no murmurs Abdomen-soft bowel sounds present non tender no distension Extremities-no edema no erythema Neuro-alert and awake moves extremities Lab data as noted below. ASSESSMENT & PLAN: R RENAL CALCULI WITH MILD HYDRONEPHROSIS pt presented with R flank pain and hematuria 2 days ago; h/o multiple kidney stones KUB + 4mm R ureteral calculi and R Renal US + mild hydronephrosis on flomax pain control' iv fluids passed stone and feeling bettwr wants to be discharged f/u with pcp. ALAINA presented with creatinine 2.0; was 1.4 (12/26); secondary to obstructing ureteral calculi (see above) cr 2.0 on discharge f/u labs in 4-5 days with pcp. CAD s/p stent placement On ASA, Plavix, BB and statin stable HTN on metoprolol Losartan on hold for ALAINA losartan restarted on discharge f/u with pcp DYSLIPIDEMIA on statin discharged home Vital Signs: Date Time Temp Pulse Resp B/P Pulse Ox O2 Delivery O2 Flow Rate FiO2 12/29/16 14:29 37.0 79 16 92 Room Air 12/29/16 08:34 Room Air 12/29/16 07:22 37.0 79 16 131/78 92 Room Air 12/28/16 23:55 Room Air 12/28/16 23:15 37.4 83 16 139/75 92 Room Air 12/28/16 22:20 Room Air 12/28/16 22:20 37.3 78 17 121/78 91 Room Air 12/28/16 22:00 78 16 132/78 95 12/28/16 20:14 37.5 75 16 141/80 95 Room Air 12/28/16 18:49 69 18 163/96 99 Room Air 12/28/16 17:22 37.0 74 18 138/91 95 Room Air Lab Results: Results Past 24 Hours Test 12/28/16 18:00 12/28/16 18:50 12/29/16 06:22 Range/Units White Blood Count 12.50 10.97 4.8-10.8 K/uL Red Blood Count 4.31 4.04 4.7-6.1 M/uL Hemoglobin 12.9 12.2 14.0-18.0 g/dL Hematocrit 37.7 35.8 42-52 % Mean Corpuscular Volume 87.5 88.6 80-100 fL Mean Corpuscular Hemoglobin 29.9 30.2 25-34 pg Mean Corpuscular Hemoglobin Concent 34.2 34.1 32-36 g/dl Platelet Count 187 169 130-400 K/uL Mean Platelet Volume 10.4 10.6 7.4-10.4 fL Neutrophils (%) (Auto) 74.6 % Lymphocytes (%) (Auto) 13.8 % Monocytes (%) (Auto) 9.7 % Eosinophils (%) (Auto) 1.5 % Basophils (%) (Auto) 0.2 % Neutrophils # (Auto) 9.33 1.4-6.5 K/uL Lymphocytes # (Auto) 1.73 1.2-3.4 K/uL Monocytes # (Auto) 1.21 0.11-0.59 K/uL Eosinophils # (Auto) 0.19 0-0.5 K/uL Basophils # (Auto) 0.02 0-0.2 K/uL RDW Standard Deviation 43.3 43.1 36.4-46.3 fL RDW Coefficient of Variation 13.4 13.2 11.5-14.5 % Immature Granulocyte % (Auto) 0.2 % Immature Granulocyte # (Auto) 0.02 0.00-0.02 K/uL Sodium Level 138 138 136-145 mmol/L Potassium Level 4.3 4.3 3.5-5.1 mmol/L Chloride Level 102 104 98-107 mmol/L Carbon Dioxide Level 30 28 21-32 mmol/L Anion Gap 6.0 6.0 3-11 mmol/L Blood Urea Nitrogen 22 21 7-18 mg/dl Creatinine 2.00 2.00 0.60-1.40 mg/dl Est Creatinine Clear Calc Drug Dose 58.9 58.9 ml/min Estimated GFR () 44.4 44.4 Estimated GFR (Non- 38.3 38.3 BUN/Creatinine Ratio 11.0 10.5 10-20 Random Glucose 93 86 70-99 mg/dl Calcium Level 9.0 8.3 8.5-10.1 mg/dl Total Bilirubin 0.5 0.2-1 mg/dl Aspartate Amino Transf (AST/SGOT) 13 15-37 U/L Alanine Aminotransferase (ALT/SGPT) 30 12-78 U/L Alkaline Phosphatase 72 45-117 U/L Total Protein 7.2 6.4-8.2 gm/dl Albumin 3.5 3.4-5.0 gm/dl Globulin 3.7 2.5-4.0 gm/dl Albumin/Globulin Ratio 0.9 0.9-2 Urine Color YELLOW Urine Appearance CLEAR CLEAR Urine pH 5.0 4.5-7.5 Urine Specific [place] 1.010 1.000-1.030 Urine Protein NEG NEG Urine Glucose (UA) NEG NEG Urine Ketones NEG NEG Urine Occult Blood NEG NEG Urine Nitrite NEG NEG Urine Bilirubin NEG NEG Urine Urobilinogen NEG NEG Urine Leukocyte Esterase NEG NEG Chemistry Specimen Hemolysis
--- NOTE | 2016-12-29 18:46 | Discharge Summary ---
Discharge Summary Date of Service Dec 29, 2016. Discharge Summary Admission Date: Dec 28, 2016 at 20:52 Discharge Date: Dec 29, 2016 Discharge Disposition: Home Principal Diagnosis: RENAL STONE Secondary Diagnoses/Problems: (1) CAD (coronary artery disease) Permanent Comment: s/p stents x 3 Status: Chronic (2) Dyslipidemia Status: Chronic (3) Gout Status: Chronic (4) History of kidney stones Status: Chronic (5) HTN (hypertension) Status: Chronic Procedures: RENAL US: Mild right hydronephrosis, similar to prior CT when allowing for differences in technique. No right ureteral jet identified. No ureteral calculi identified although these are often occult by sonography. KUB: 4 mm right pelvic calcification which likely reflects the distal right ureteral calculus shown on prior CT. A phlebolith could appear similar although is considered less likely. Medication Reconciliation Continued Medications: Allopurinol (Zyloprim) 100 Mg Tab 100 MG PO DAILY, TAB Aspirin Enteric Coated (Ecotrin Or Generic) 81 Mg Tab 81 MG PO DAILY, TAB Atorvastatin Calcium (Lipitor) 80 Mg Tab 80 MG PO DAILY, TAB Clopidogrel Bisulfate (Plavix) 75 Mg Tab 75 MG PO DAILY, TAB Losartan Potassium (Cozaar) 50 Mg Tab 50 MG PO HS, TAB Metoprolol Succ (Toprol Xl) (Toprol-Xl ) 100 Mg Tabcr 100 MG PO DAILY, TAB Ondasetron Odt (Zofran Odt) 4 Mg Tab 4 MG SL Q6H for Nausea, #10 TAB Tamsulosin Hcl (Flomax) 0.4 Mg Cap 0.4 MG PO DAILY, #10 CAP Discontinued Medications: Hydrocodone/Acetaminophen 5MG/325MG ([place] 5MG/325MG) Tab 1 TABLET PO Q6 PRN for Pain for 10 Days, #20 TAB Admission Information HPI (per Admitting provider): This is a 46 y/o male with PMHx of CAD s/p stents, HTN, Dyslipidemia and other problems as outlined below who presents to the ED c/o R flank pain that began 2 days ago. Pt reports that 2 days ago he developed 10/10 waxing and waning R flank pain that radiated to into the R groin. Sxs were assoc with hematuria. Pt was seen in the ED 2 days and diagnosed with a R sided kidney stone. He was discharged home with Flomax and hydrocodone PRN. Yesterday, his hematuria and flank pain improved and he thought he had passed the stone however today his R flank pain returned. He tried taking the hydrocodone however it offered him no relief and decided to return to the ED. Pt has a history of kidney stones. He has never required surgery. Pt denies fever/chills, chest pain, SOB, abd pain, N /V, bowel issues, dysuria, LE edema, calf pain, lightheadedness/dizziness. In the ED, vitals are stable. Pt is afebrile with leukocytosis >12k. Creat 2.0. UA negative. KUB + 4mm R ureteral calculi with mild R hydronephrosis. Pt will be admitted for further evaluation and treatment. Physical Exam (per Admitting): General Appearance: WD/WN, no apparent distress, + pertinent finding (Pt is laying in bed with at bedside ) Head: normocephalic, atraumatic Eyes: normal inspection ENT: hearing grossly normal Neck: supple Respiratory/Chest: chest non-tender, lungs clear, normal breath sounds, no respiratory distress Cardiovascular: regular rate, rhythm, no edema, no murmur Abdomen/GI: normal bowel sounds, non tender, soft Back: normal inspection, + right CVA tenderness Extremities/Musculoskelatal: normal inspection, no calf tenderness, no pedal edema Neurologic/Psych: alert, normal mood/affect, oriented x 3 Skin: normal color, warm/dry Physical Exam (per Admitting): General Appearance: WD/WN, no apparent distress, + pertinent finding (Pt is laying in bed with at bedside ) Head: normocephalic, atraumatic Eyes: normal inspection ENT: hearing grossly normal Neck: supple Respiratory/Chest: chest non-tender, lungs clear, normal breath sounds, no respiratory distress Cardiovascular: regular rate, rhythm, no edema, no murmur Abdomen/GI: normal bowel sounds, non tender, soft Back: normal inspection, + right CVA tenderness Extremities/Musculoskelatal: normal inspection, no calf tenderness, no pedal edema Neurologic/Psych: alert, normal mood/affect, oriented x 3 Skin: normal color, warm/dry Hospital Course R RENAL CALCULI WITH MILD HYDRONEPHROSIS pt presented with R flank pain and hematuria 2 days ago; h/o multiple kidney stones KUB + 4mm R ureteral calculi and R Renal US + mild hydronephrosis on flomax pain control' iv fluids passed stone and feeling bettwr wants to be discharged f/u with pcp. ALAINA presented with creatinine 2.0; was 1.4 (12/26); secondary to obstructing ureteral calculi (see above) cr 2.0 on discharge f/u labs in 4-5 days with pcp. CAD s/p stent placement On ASA, Plavix, BB and statin stable HTN on metoprolol Losartan on hold for ALAINA losartan restarted on discharge f/u with pcp DYSLIPIDEMIA on statin discharged home Total time spent on discharge = 35MINUTES This includes examination of the patient, discharge planning, medication reconciliation, and communication with other providers. Discharge Instructions Please take this sheet to every appointment for the next month Discharge Instructions Date of Service Dec 29, 2016. Admission Reason for Admission: Ureterlithiasis Discharge Discharge Diagnosis / Problem: renal stone Discharge Goals Goal(s): Decrease discomfort, Improve function Activity Recommendations Activity Limitations: resume your previous activity . Instructions / Follow-Up Instructions / Follow-Up FOLLOWUP WITH FAMILY DOCTOR ON December AT 11:30AM. LAB: BMP IN 4-5 DAYS AND FOLLOW RESULTS WITH FAMILY DOCTOR. Current Hospital Diet Patient's current hospital diet: AHA Diet (Heart Healthy) Discharge Diet Recommended Diet: AHA Diet (Heart Healthy) Pending Studies Studies pending at discharge: no Medical Emergencies . Who to Call and When: Medical Emergencies: If at any time you feel your situation is an emergency, please call 911 immediately. . Non-Emergent Contact Non-Emergency issues call your: Primary Care Provider . . "Provider Documentation" section prepared by Jamin Valiente. VTE Core Measure Inpt VTE Proph given/why not?: SCD's
--- NOTE | 2016-12-30 18:52 | Urology Consultation ---
History General Date of Service: Dec 30, 2016. Primary Care Physician: Simba Marcial D.O. History of Present Illness patient passed his stone 12/29/16 mid morning and will not need any urologic intervention. Laboratory Labs were reviewed and are within normal limits unless listed below. Labs are available in the chart and at [facility] Problem List Medical Problems: (1) ALAINA (acute kidney injury) Status: Acute (2) Hydronephrosis determined by ultrasound Status: Acute (3) Ureterolithiasis Status: Acute (4) Ureterolithiasis Status: Acute Family History Patient reports no known family medical history. Social History Hx Tobacco Use In Past Year?: No Marital status: Housing status: lives with family Occupation status: employed Immunizations History of Influenza Vaccine: No History of Tetanus Vaccine?: Unknown History of Pneumococcal: No History of Hepatitis B Vaccine: No Allergies Coded Allergies: Animal Dander (Verified Allergy, Intermediate, runny nose, watery eyes, 11/22/12) Lisinopril (Verified Adverse Reaction, Intermediate, COUGH, 12/26/16) Uncoded Allergies: MUSHROOMS (Allergy, Severe, ANAPHYLAXIS, 12/26/16) Medications Home Medications: Home Meds and Scripts Medications Dose Route/Sig Max Daily Dose Days Date Category Zofran Odt (Ondansetron HCl) 4 Mg Tab 4 Mg SL Q6H 12/27/16 Rx Flomax (Tamsulosin Hcl) 0.4 Mg Cap 0.4 Mg PO DAILY 12/27/16 Rx Cozaar (Losartan Potassium) 50 Mg Tab 50 Mg PO HS 12/26/16 Reported Toprol-Xl (Metoprolol Succinate) 100 Mg Tabcr 100 Mg PO DAILY 12/26/16 Reported Zyloprim (Allopurinol) 100 Mg Tab 100 Mg PO DAILY 12/26/16 Reported Plavix (Clopidogrel Bisulfate) 75 Mg Tab 75 Mg PO DAILY 11/22/12 Reported Lipitor (Atorvastatin Calcium) 80 Mg Tab 80 Mg PO DAILY 11/22/12 Reported Ecotrin Or Generic (Aspirin) 81 Mg Tab 81 Mg PO DAILY 11/22/12 Reported
== END 2016-12-29 14:51 | disposition home or self-care (01) | DRG 694 ==
LOC: ENRESERVDT → ENRESERVTM → C.EDB 17:20 → C.MSW 20:52
PROVIDERS: ADMIT Internal Medicine; ATTEND Internal Medicine
DX: N13.2 Hydronephrosis with renal and ureteral calculous obstruction (principal); N17.9 Acute kidney failure, unspecified; I25.10 Atherosclerotic heart disease of native coronary artery without angina pectoris; E78.5 Hyperlipidemia, unspecified; M10.9 Gout, unspecified; I10 Essential (primary) hypertension; Z95.5 Presence of coronary angioplasty implant and graft; Z79.899 Other long term (current) drug therapy; Z79.82 Long term (current) use of aspirin; Z79.891 Long term (current) use of opiate analgesic; Z79.02 Long term (current) use of antithrombotics/antiplatelets